=== PATIENT | male | born 1970 | race Two or more races ===

== ENCOUNTER 2020-08-29 19:15 | Emergency (ER) | payer MEDICARE ==
[~2020-08-29] VITALS: Ht 172.7 cm; Wt 93.5 kg
--- NOTE | 2020-08-29 19:35 | NUR ---
late entry d/t pt care: pt reports coming into ed today due to a positive covid test. states his symptoms of cough, fever, chills and fatigue began a few days prior. pt resting on gurney, noted to be diaphoretic, gross neuro intact, pulses 2+, resp rate and rhythm wnl. pt placed on spo2/bp/ecg monitoring at this time. wctm.
[2020-08-29] MEDS ORDERED: DEXAMETHASONE 4 MG TABLET PO ONE (20:30)
--- NOTE | 2020-08-29 20:39 | NUR ---
PT RESTING ON GURNEY, NAD, NO CHANGE IN CONDITION, BED IN LOWEST, CALL LIGHT ON LAP, WCTM. MEDICATED PER OCT.
[2020-08-29] MEDS ORDERED: DEXAMETHASONE 4 MG TABLET ONE (20:41)
--- NOTE | 2020-08-29 21:33 | NUR ---
LATE ENTRY D/T PT CARE: PT RESTING ON GURNEY, RA SAT HOLDING AT 90-93% WHILE SLEEPING, NAD, APPEARS COMFORTABLE, NO LONGER DIAPHORETIC, WCTM.
[2020-08-29 21:35] LABS: BASOPHILS % (AUTO) 0 % (0-1); EOSINOPHILS % (AUTO) 0 % (1-7); LYMPHOCYTES % (AUTO) 20 % (22-44); MEAN CORPUSCULAR HGB CONC 34.9 g/dL (33.2-36.2); MEAN PLATELET VOLUME 8.5 fL (7.4-10.4); MONOCYTES % (AUTO) 5 % (2-9); NEUTROPHILS % (AUTO) 75 % (42-75); PLATELET COUNT 199 x10^3/uL (130-400); RED BLOOD COUNT 4.94 x10^6/uL (4.38-5.82); RED CELL DISTRIBUTION WIDTH 12.4 % (9.4-14.8)
[2020-08-29 21:39] LABS: ALBUMIN 2.9 g/dL (3.4-5.0); ANION GAP 5 mmol/L (5-15); CALCIUM 7.9 mg/dL (8.5-10.1); CHLORIDE 107 mmol/L (98-107); CREATININE 0.94 mg/dL (0.7-1.3)
[2020-08-29 22:04] LABS: MD NO
[2020-08-29 22:27] VITALS: BP 94/67
--- NOTE | 2020-08-29 22:28 | NUR ---
Patient given discharge instructions and they have confirmed that they understand the instructions. Patient ambulatory with steady gait. NAD, NO CHANGE IN CONDITION, VSS, DENIES ADDITIONAL QUESTIONS OR NEEDS. NO PERSONAL BELONGINGS LEFT IN ROOM AFTER DC.
== END 2020-08-29 22:38 | disposition home or self-care (01) ==
LOC: ED 20:46
DX: U07.1 COVID-19 (principal); J12.9 Viral pneumonia, unspecified; I10 Essential (primary) hypertension
CPT/HCPCS: 36415; 71045; 80048; 82040; 83605; 85025; 99284